=== PATIENT | female | born 1995 ===

== ENCOUNTER → 2016-07-13 | Outpatient (CLI) | payer BC ==
--- NOTE | 2016-07-13 14:17 | DI ---
Indication: ITS.REASON: [id number] INJURY PROCEDURE: MRI FOOT RIGHT W/O CONTRAST: Encounter: Initial Comparison: Right foot radiographs dated May 25, 2016 Technique: Multiplanar multisequence MR imaging of the right foot was performed without contrast. Findings: A marker indicating the site of patient's maximal pain was placed overlying the dorsal aspect of the second metatarsal base. There is focal edema within the second metatarsal base and the adjacent middle and lateral cuneiform bones. There is suggestion of slight cortical thickening. The Lisfranc ligament appears intact. No dislocation. The remaining bone marrow signal intensity is normal. The flexor and extensor tendons are grossly normal as is the intrinsic foot musculature. No fluid collections. Achilles tendon appears normal. Plantar fascia thickness is normal. Impression: Stress fracture of the second metatarsal base. Possible stress fracture versus bone contusion versus reactive edema within the middle and lateral cuneiform bones. .
== END ==
LOC: IMA 12:47
PROVIDERS: ATTEND Family Medicine Sports Medicine
DX: M84.374A Stress fracture, right foot, initial encounter for fracture (principal)